=== PATIENT | female | born 1990 | race Caucasian/White ===

== ENCOUNTER 2018-06-12 18:02 | Outpatient (CLI) | payer MEDICAID | END 2018-06-12 18:03 | disposition critical access hospital (66) | LOC: EMS 18:02 | PROVIDERS: ATTEND Surgery | DX: R51 Headache (principal) | CPT/HCPCS: A0425; A0429 ==

== ENCOUNTER 2018-06-12 18:20 | Emergency (ER) | payer MEDICAID ==
[2018-06-12 18:33] VITALS: BP 122/81
--- NOTE | 2018-06-12 20:10 | ED Physician Documentation ---
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 : None HEENT: None Psych: Depression, Anxiety Musculoskeletal: Chronic back pain Derm: None Other Past Medical History: WPW disorder - Past Surgical History Past Surgical History: Yes Cardiovascular: Other - Present Medications Home Medications: Ambulatory Orders Medication Instructions Recorded Confirmed Buspirone HCl 10 mg PO DAILY 08/08/14 11/19/14 Albuterol Sulfate [Albuterol 2 puffs IH Q4HR PRN #1 [email or web address] 10/23/14 11/19/14 Sulfate Hfa] - Allergies Allergies/Adverse Reactions: Allergies Allergy/AdvReac Type Severity Reaction Status Date / Time No Known Drug Allergies Allergy Verified 06/12/18 18:33 - Social History Does the pt smoke?: Yes Smoking Status: Current every day smoker Does the pt drink ETOH?: No Does the pt have substance abuse?: No - Immunizations Immunizations are current?: Yes - POLST Patient has POLST: No Results - Vitals Vitals: Vital Signs - 24 hr 06/12/18 18:28 Temperature 37.0 C Heart Rate 118 H Respiratory 16 Rate Blood Pressure 122/81 H O2 Saturation 99 Oxygen O2 Source Room air PD MEDICAL DECISION MAKING - ED course ED course: I went to assess patient at 8:12 PM and no one is in room. The adjacent bathroom is unoccupied, and the other bathroom has a different patient using it. Departure - Departure Disposition: ED Elope Discharge Date/Time: 06/12/18 20:28
== END 2018-06-12 20:28 | disposition left against medical advice (07) ==
LOC: EDUNIT# → ED 18:20
DX: R51 Headache (principal); R00.0 Tachycardia, unspecified; F17.200 Nicotine dependence, unspecified, uncomplicated
CPT/HCPCS: 93005; 99281